=== PATIENT | female | born 1955 | race Caucasian/White ===

== ENCOUNTER 2019-03-27 19:19 | Inpatient (IN) | payer SELFPAY ==
[~2019-03-27] VITALS: Ht 162.6 cm; Wt 77.6 kg
[2019-03-27] MEDS ORDERED: SODIUM CHLORIDE 0.9% 1,000 ML IVB ONE (20:04)
[2019-03-27 20:34] LABS: Basophils # (auto) 0.1 uL; Basophils % (auto) 1.7 % (0.0-2.0); Eosinophils # (auto) 0.1 uL; Eosinophils % (auto) 1.8 % (0.0-7.0); Hematocrit 35.7 % (36.0-46.0); Hemoglobin 12.3 g/dL (12.2-16.2); Mean Corpuscular Hemoglobin 33.5 pg (28.0-32.0); Mean Corpuscular Hgb Conc. 34.4 g/dL (32.0-36.0); Mean Corpuscular Volume 97.4 fL (80.0-100.0); Monocytes # (auto) 0.6 uL; Monocytes % (auto) 7.8 % (0.0-12.0); Neutrophils # (auto) 4.5 uL; Neutrophils % (auto) 60.7 % (37.0-80.0); Platelet Count (auto) 402 10^3/uL (140-450); Red Blood Cells 3.67 10^6/uL (4.0-5.20); Red Cell Distribution Width 14.8 % (11.8-14.3); White Blood Cell 7.3 10^3/uL (4.4-10.8)
[2019-03-27 20:42] LABS: INR 1.01 (0.9-1.15)
[2019-03-27 20:57] LABS: Albumin 3.6 g/dL (3.4-5.0); Calcium 8.9 mg/dL (8.5-10.1); Potassium 3.5 mmol/L (3.5-5.1)
[2019-03-27 21:05] LABS: BUN/Creatinine Ratio 12.3; Bilirubin, Total 0.3 mg/dL (0.2-1.0); Total Protein 7.5 g/dL (6.4-8.2)
[2019-03-27] MEDS ORDERED: ACETAMINOPHEN 325 MG TAB PO ONE ×2 (22:15)
[2019-03-27] MEDS ORDERED: FOLIC ACID 1 MG, MULTIPLE VITAMIN 10 ML, MAGNESIUM SULF SDV 50% 8 MEQ, THIAMINE INJ 100... INJ SCH ×10 (22:15→22:30)
[2019-03-27] MEDS ORDERED: SODIUM CHLORIDE 0.9% 1,000 ML IV ONE ×2 (22:15)
[2019-03-27] MEDS: MAGNESIUM SULFATE 1GM/100ML 100 ML IV SCH ×2 (22:45→23:15)
[2019-03-27] MEDS ORDERED: DEXTROSE (50%) 50ML SYRG IV PRN (23:00)
[2019-03-27] MEDS ORDERED: chlordiazePOXIDE HCL 25 MG CAP PO PRN (23:00)
[2019-03-27] MEDS ORDERED: ACETAMINOPHEN 500 MG TAB PO PRN (23:00)
[2019-03-27] MEDS ORDERED: LORazepam 2MG/ML-1ML VIAL IV PRN (23:00)
[2019-03-27] MEDS ORDERED: ONDANSETRON HCL 4 MG/2 ML VIAL IV PRN (23:00)
[2019-03-27] MEDS ORDERED: TETANUS-DIPTH-ACEL PERTUSSIS 0.5ML SYRG IM ONE (23:00)
[2019-03-27] MEDS ORDERED: HYDROcodone-ACET 5/325MG TAB PO PRN (23:00)
--- NOTE | 2019-03-27 23:57 | NUR ---
SBAR received from Colette Welsh RN. Patient is going to be brought up to the floor shortly.
--- NOTE | 2019-03-28 00:06 | NUR ---
Telemetry admit from [facility] admitted to Telemetry unit after SBAR received. Patient oriented to LYNN SCHULZ RN primary RN, unit, room, bed, and unit policies regarding patient care and visiting hours. Patient now on continuous telemetry monitoring, tele box # 26 and telemetry reading on arrival to unit is NSR. Patient weighed by bedscale and encouraged to call if they need something. All questions and concerns addressed, patient verbalized understanding. Patient is A/O x4, complaints of pain to the generalized body, pain management options discussed with patient and patient stated tylenol will do nothing for her. Bilateral radial and dorsalis pedal pulses are 2+ and regular in rate and rhythm. A splint is on the right foot; abrasions noted to the JESÚS, back of the left upper thigh, right breast, and right knee. Call light is within reach, side rails up x2, bed is in lowest position, bed alarm is on. Will continue to monitor patient and make rounds as needed.
[2019-03-28] MEDS ORDERED: GABA100C9 PO (01:13)
[2019-03-28] MEDS ORDERED: FLUO1TAB3 PO (01:13)
[2019-03-28] MEDS ORDERED: METF-370 PO (01:13)
[2019-03-28] MEDS ORDERED: INS7030I SC (01:13)
[2019-03-28] MEDS ORDERED: HYDR25TA4 PO (01:13)
[2019-03-28] MEDS ORDERED: LISI40TA PO (01:13)
[2019-03-28 01:21] VITALS: BP 122/59
--- NOTE | 2019-03-28 03:53 | NUR ---
Urine sample collected and sent to lab via [employer] system.
[2019-03-28 04:26] LABS: Urine Bacteria NONE SEEN /hpf (None Seen); Urine Blood TRACE /uL (Negative); Urine Specific Gravity 1.009 (1.001-1.035); Urine WBC 6 /hpf (0 - 5)
[2019-03-28 04:43] LABS: Amphetamine Screen, Urine NEGATIVE (NEGATIVE); Barbiturate Scree,Urine NEGATIVE (NEGATIVE); Cannabinoid Screen, Urine NEGATIVE (NEGATIVE); Cocaine Screen, Urine NEGATIVE (NEGATIVE); Opiate Scree,Urine NEGATIVE (NEGATIVE); Phencyclidine Screen, Urine NEGATIVE (NEGATIVE)
--- NOTE | 2019-03-28 04:47 | NUR ---
MULTIVITAMINS IV INFUSION/BANANA BAG NOT AVAILABLE, CHARGE NURSE AND HOUSE SUP NOTIFIED. UNABLE TO MIX BANANA BAG, SOME OF THE COMPONENTS ARE ONLY AVAILABLE IN THE PHARMACY Addendum: 03/29/19 at 0450 by SELINA CRANE RN DISREGARD.
[2019-03-28 04:48] LABS: Benzodiazephine Screen, Urine NEGATIVE (NEGATIVE)
[2019-03-28 05:13] VITALS: BP 135/58
[2019-03-28 06:10] LABS: Basophils # (auto) 0.1 uL; Basophils % (auto) 1.1 % (0.0-2.0); Eosinophils # (auto) 0 uL; Eosinophils % (auto) 0.5 % (0.0-7.0); Hemoglobin 11.8 g/dL (12.2-16.2); Lymphocytes # (auto) 1.1 uL; Lymphocytes % (auto) 15.5 % (10.0-50.0); Mean Corpuscular Hemoglobin 32.5 pg (28.0-32.0); Mean Corpuscular Hgb Conc. 33.7 g/dL (32.0-36.0); Mean Corpuscular Volume 96.5 fL (80.0-100.0); Monocytes # (auto) 0.7 uL; Monocytes % (auto) 9.5 % (0.0-12.0); Neutrophils # (auto) 5.4 uL; Neutrophils % (auto) 73.4 % (37.0-80.0); Platelet Count (auto) 346 10^3/uL (140-450); Red Blood Cells 3.62 10^6/uL (4.0-5.20); Red Cell Distribution Width 14.5 % (11.8-14.3); White Blood Cell 7.4 10^3/uL (4.4-10.8)
[2019-03-28 06:28] LABS: BUN/Creatinine Ratio 13.1; Calcium 8.2 mg/dL (8.5-10.1); Potassium 3.3 mmol/L (3.5-5.1)
[2019-03-28] MEDS: ACCU-CHEK COMFORT CURVE STRIP VI SCH ×4 (06:35→22:08)
[2019-03-28] MEDS: InsuLIN REG 1unit/0.01ml Soln (100units/ml) SC SCH ×4 (06:35→22:08)
--- NOTE | 2019-03-28 07:52 | NUR ---
Opening Shift Note Assumed care of patient, awake and alert. No S/S of distress/SOB. Patient complained of pain to right knee and foot. Refused hot or cold compress, refused Tylenol. No other pain medications ordered at this time. Awaiting hospitalist rounding. Patient was instructed on POC and to call for assist PRN, will continue to monitor for changes Q1hr and PRN.
[2019-03-28 08:28] VITALS: BP 139/79
[2019-03-28] MEDS: PANTOPRAZOLE 40 MG TAB PO SCH (10:16)
[2019-03-28] MEDS: GABAPENTIN 300 MG CAP PO SCH ×2 (10:16→22:08)
[2019-03-28] MEDS: FLUoxetine HCL 20 MG CAP PO SCH (10:16)
[2019-03-28] MEDS: LISINOPRIL 20 MG TAB PO SCH (10:18)
[2019-03-28] MEDS ORDERED: chlordiazePOXIDE HCL 25 MG CAP PO PRN (12:00)
[2019-03-28] MEDS ORDERED: LORazepam 2MG/ML-1ML VIAL IV PRN (12:15)
[2019-03-28] MEDS: MORPHINE SULF INJ 2 MG/ML SYRINGE 1ML IV PRN ×3 (12:24→22:08)
[2019-03-28] MEDS ORDERED: POTASSIUM CHL 10 Meq TABLET PO ONE (12:30)
[2019-03-28 12:47] VITALS: BP 142/82
--- NOTE | 2019-03-28 13:25 | NUR ---
Ortho Consult Dr. Santillan at bedside.
[2019-03-28 16:48] VITALS: BP 147/82
--- NOTE | 2019-03-28 19:03 | NUR ---
Opening Shift Note Assumed care of patient, awake and alert x4. No S/S of distress/SOB or pain. Call light is within reach, side rails up x2, bed is in lowest position, SEIZURE PRECAUTIONS are at bedside. The right leg has a new dressing and marilee bandage on it per DR. Santillan, it is C/D/I. Pillows were placed under the right knee to elevate the leg to minimize swelling. Instructed on POC and to call for assist PRN. All questions and concerns answered, will continue to monitor for changes Q1hr and PRN.
--- NOTE | 2019-03-28 21:16 | NUR ---
Care endorsed to Toby PERES.
--- NOTE | 2019-03-28 21:20 | NUR ---
RECEIVED PATIENT LYING IN BED, AWAKE, ALERT, ORIENTED X4. NO S/S OF RESPIRATORY DISTRESS, DENIES SOB AND CHEST PAIN. ORIENTED ON PLAN OF CARE. BED IS LOCKED AND IN LOWEST LEVEL, SIDE RAILS UP X2, CALL LIGHT WITHIN REACH. WILL CONTINUE TO MONITOR
[2019-03-28] MEDS: FOLIC ACID 1 MG, MULTIPLE VITAMIN 10 ML, MAGNESIUM SULF SDV 50% 8 MEQ, THIAMINE INJ 100... INJ SCH ×5 (22:00)
[2019-03-28 22:23] VITALS: BP 153/79
--- NOTE | 2019-03-28 22:40 | NUR ---
MULTIVITAMINS IV INFUSION/BANANA BAG NOT AVAILABLE, CHARGE NURSE AND HOUSE SUP NOTIFIED. UNABLE TO MIX BANANA BAG, SOME OF THE COMPONENTS ARE ONLY AVAILABLE IN THE PHARMACY
[2019-03-29 05:05] VITALS: BP 153/80
[2019-03-29 05:24] VITALS: BP 153/80
[2019-03-29 06:20] LABS: Basophils # (auto) 0.1 uL; Basophils % (auto) 1.3 % (0.0-2.0); Eosinophils # (auto) 0.1 uL; Eosinophils % (auto) 1.4 % (0.0-7.0); Hemoglobin 11.9 g/dL (12.2-16.2); Lymphocytes # (auto) 1.4 uL; Lymphocytes % (auto) 23.1 % (10.0-50.0); Mean Corpuscular Hemoglobin 33.1 pg (28.0-32.0); Mean Corpuscular Hgb Conc. 34.1 g/dL (32.0-36.0); Monocytes # (auto) 0.7 uL; Monocytes % (auto) 12.1 % (0.0-12.0); Neutrophils # (auto) 3.8 uL; Neutrophils % (auto) 62.1 % (37.0-80.0); Nucleated Red Blood Cells % 0.1 %; Platelet Count (auto) 317 10^3/uL (140-450); Red Blood Cells 3.61 10^6/uL (4.0-5.20); Red Cell Distribution Width 14.6 % (11.8-14.3); White Blood Cell 6.1 10^3/uL (4.4-10.8)
[2019-03-29] MEDS: MORPHINE SULF INJ 2 MG/ML SYRINGE 1ML IV PRN ×4 (06:38→22:10)
[2019-03-29] MEDS: ACCU-CHEK COMFORT CURVE STRIP VI SCH ×4 (06:38→22:08)
[2019-03-29] MEDS: InsuLIN REG 1unit/0.01ml Soln (100units/ml) SC SCH ×4 (06:38→22:08)
[2019-03-29 06:47] LABS: BUN/Creatinine Ratio 14.9; Calcium 8.6 mg/dL (8.5-10.1); Potassium 3.3 mmol/L (3.5-5.1)
--- NOTE | 2019-03-29 06:50 | NUR ---
CALLED PHARMACY TO DELIVER THE BANANA BAG
--- NOTE | 2019-03-29 07:22 | NUR ---
Opening Shift Note Assumed care of patient, awake and alert. No S/S of distress/SOB. PT denies any pain at this time. Bed in lowest and locked position with side rails up x2 and call light within reach. Instructed on POC and to call for assist PRN, will continue to monitor for changes Q1hr and PRN.
--- NOTE | 2019-03-29 07:36 | NUR ---
CARE ENDORSED TO AM SHIFT RN
[2019-03-29 09:07] VITALS: BP 145/81
[2019-03-29] MEDS: PANTOPRAZOLE 40 MG TAB PO SCH (10:00)
[2019-03-29] MEDS: GABAPENTIN 300 MG CAP PO SCH ×2 (11:05→22:08)
[2019-03-29] MEDS: LISINOPRIL 20 MG TAB PO SCH (11:05)
[2019-03-29] MEDS: FLUoxetine HCL 20 MG CAP PO SCH (11:05)
[2019-03-29] MEDS: FOLIC ACID 1 MG, MULTIPLE VITAMIN 10 ML, MAGNESIUM SULF SDV 50% 8 MEQ, THIAMINE INJ 100... INJ SCH ×5 (11:07)
[2019-03-29] MEDS ORDERED: POTASSIUM CHL 20 Meq TABLET PO ONE (12:45)
[2019-03-29] MEDS ORDERED: ENOXAPARIN SOD 40 MG/0.4 ML SYRINGE SC ONE (12:45)
[2019-03-29 13:00] VITALS: BP 130/72
[2019-03-29] MEDS: MAGNESIUM SULFATE 1GM/100ML 100 ML IV SCH ×3 (13:33→16:48)
[2019-03-29 16:58] VITALS: BP 139/71
--- NOTE | 2019-03-29 19:00 | NUR ---
IV insertion IV access obtained, via clean sterile technique by inserting 20 gauge catheter at left hand after 1 attempt(s). IV secured properly. No trauma to site. Patient tolerated well.
--- NOTE | 2019-03-29 19:00 | NUR ---
IV removal left AC IV DC'd with clean sterile technique, catheter fully intact. Pressure dressing applied to site. Patient tolerated well.
[2019-03-29 22:07] VITALS: BP 149/76
[2019-03-29] MEDS: MAGNESIUM OXIDE 400 MG TAB PO SCH (22:08)
[2019-03-30 05:40] VITALS: BP 142/83
[2019-03-30 05:51] LABS: BUN/Creatinine Ratio 12.3; Calcium 8.5 mg/dL (8.5-10.1); Magnesium 1.8 mg/dL (1.6-2.6); Potassium 3.4 mmol/L (3.5-5.1)
[2019-03-30 05:54] LABS: Bilirubin, Total 1.3 mg/dL (0.2-1.0); Total Protein 6.9 g/dL (6.4-8.2)
[2019-03-30] MEDS: ACCU-CHEK COMFORT CURVE STRIP VI SCH ×2 (06:27→12:03)
[2019-03-30] MEDS: InsuLIN REG 1unit/0.01ml Soln (100units/ml) SC SCH ×2 (06:27→12:03)
[2019-03-30] MEDS: MORPHINE SULF INJ 2 MG/ML SYRINGE 1ML IV PRN ×2 (06:32→11:21)
--- NOTE | 2019-03-30 07:23 | NUR ---
CARE ENDORSED TO AM SHIFT RN
[2019-03-30 09:00] VITALS: BP 140/80
[2019-03-30] MEDS ORDERED: POTASSIUM CHL 20 Meq TABLET PO ONE (09:30)
[2019-03-30] MEDS ORDERED: ENOXAPARIN SOD 40 MG/0.4 ML SYRINGE SC SCH (10:00)
[2019-03-30] MEDS: GABAPENTIN 300 MG CAP PO SCH (10:09)
[2019-03-30] MEDS: PANTOPRAZOLE 40 MG TAB PO SCH (10:09)
[2019-03-30] MEDS: MAGNESIUM OXIDE 400 MG TAB PO SCH (10:09)
[2019-03-30] MEDS: FLUoxetine HCL 20 MG CAP PO SCH (10:09)
[2019-03-30] MEDS: MAGNESIUM SULFATE 1GM/100ML 100 ML IV SCH ×2 (10:09→11:20)
[2019-03-30] MEDS: LISINOPRIL 20 MG TAB PO SCH (10:10)
[2019-03-30] MEDS ORDERED: FOLIC ACID 1 MG, MULTIPLE VITAMIN 10 ML, MAGNESIUM SULF SDV 50% 8 MEQ, THIAMINE INJ 100... INJ SCH ×5 (11:00)
[2019-03-30 13:23] VITALS: BP 134/64
[2019-03-30] MEDS ORDERED: SUCCINYLCHOLINE CHLORIDE 20 MG/ML 10ML VIAL IV ONE (13:36)
[2019-03-30] MEDS ORDERED: ETOMIDATE (2MG/ML) 20ML VIAL IV ONE (13:36)
[2019-03-30] MEDS ORDERED: MIDAZOLAM DRIP 50 mg/50mL 50 ML IV ONE (13:36)
[2019-03-30] MEDS ORDERED: PROPOFOL 100 ML IV ONE (13:58)
[2019-03-30 14:01] VITALS: BP 134/64
--- NOTE | 2019-03-30 14:34 | NUR ---
assessment Patient is a 64 year old female who is alert and oriented. Prior to admission patient lived home with family and functioned independently. Patients PCP is Dr Dena Chung. Patient has no insurance. Patient has been assessed by Edis Church of [facility]. Patient is over Income 1,849 per month is her income. I have provided patient with resources for [facility], Dr. Gonzalez, and [facility] urgent care for follow up visits. I have provided patient with a prescription card from community assistance program. Patient has no post discharge needs at this time. Patient agreed to discharge plan home on discharge. Addendum: 03/30/19 at 1436 by Brissa BYERS Amended: Links added.
--- NOTE | 2019-03-30 14:50 | NUR ---
Discharge instructions given as ordered. Encourage to follow up with PMD as instructed. All questions and concerns addressed. Patient verbalized understanding. Medication reconciliation form completed and copy given to patient. NO Home medications held in Pharmacy. NO needed vaccines. IV removed with catheter intact, pressure dressing applied. Telemetry unit returned to [facility].
--- NOTE | 2019-03-30 14:58 | NUR ---
Patient taken to vehicle via wheelchair with all personal belongings, accompanied by staff and patient mother. No distress noted at time of departure.
== END 2019-03-30 14:48 | disposition home or self-care (01) | DRG 563 ==
LOC: EDBD 19:19 → ER 19:19 → TELE 19:20 → TELE-WESTW 03-28 00:09
PROVIDERS: ADMIT Nurse Practitioner Family; ATTEND Internal Medicine
DX: S82.51XA Displaced fracture of medial malleolus of right tibia, initial encounter for closed fracture (principal); S22.41XA Multiple fractures of ribs, right side, initial encounter for closed fracture; D63.8 Anemia in other chronic diseases classified elsewhere; E11.21 Type 2 diabetes mellitus with diabetic nephropathy; E11.22 Type 2 diabetes mellitus with diabetic chronic kidney disease; E78.5 Hyperlipidemia, unspecified; E83.42 Hypomagnesemia; E87.6 Hypokalemia; F10.229 Alcohol dependence with intoxication, unspecified; Y90.9 Presence of alcohol in blood, level not specified; Z81.8 Family history of other mental and behavioral disorders; Z80.3 Family history of malignant neoplasm of breast; Z80.8 Family history of malignant neoplasm of other organs or systems; Z81.1 Family history of alcohol abuse and dependence; E66.9 Obesity, unspecified; Z71.3 Dietary counseling and surveillance; I12.9 Hypertensive chronic kidney disease with stage 1 through stage 4 chronic kidney disease, or unspecified chronic kidney disease; N18.9 Chronic kidney disease, unspecified; V49.9XXA Car occupant (driver) (passenger) injured in unspecified traffic accident, initial encounter; Y93.89 Activity, other specified; Y92.488 Other paved roadways as the place of occurrence of the external cause; Y99.8 Other external cause status; Z79.899 Other long term (current) drug therapy; Z98.84 Bariatric surgery status; Z68.29 Body mass index [BMI] 29.0-29.9, adult; Z88.6 Allergy status to analgesic agent; Z71.41 Alcohol abuse counseling and surveillance of alcoholic
CPT/HCPCS: 36415; 70450; 71250; 72131; 73562; 73610; 76705; 80048; 80053; 80307; 80320; 81001; 82140; 82962; 83036; 83735; 85025; 85610; 90715; 94761; 96361; 96365; 96368; 97116; 97530; G0378; J0330; J1815; J2250; J2704

== ENCOUNTER 2022-04-06 15:29 | Emergency (ER) | payer MEDICAID, OTHER ==
[~2022-04-06] VITALS: Ht 160 cm; Wt 65.0 kg
[~2022-04-06 15:29] MED LIST: FLUO20TA34 PO; GABA100C9 PO; HYDR25TA4 PO; INS7030I SC; LISI40TA11 PO; METF-370 PO
[2022-04-06 18:17] LABS: Urine Bacteria NONE SEEN /hpf (None Seen); Urine Blood Negative /uL (Negative); Urine Hyaline Cast MOD /lpf (0 - 2); Urine Specific Gravity 1.024 (1.001-1.035); Urine WBC 15 /hpf (0 - 5)
[2022-04-06] MEDS ORDERED: SODIUM CHLORIDE 0.9% 500 ML IV ONE (18:30)
[2022-04-06 18:33] LABS: Basophils # (auto) 0.1 10 ^3/uL (0-0.2); Basophils % (auto) 0.8 % (0.0-2.0); Eosinophils # (auto) 0.1 10 ^3/uL (0-0.8); Eosinophils % (auto) 1.7 % (0.0-7.0); Hematocrit 28.5 % (36.0-46.0); Hemoglobin 9.3 g/dL (12.2-16.2); Lymphocytes # (auto) 1.3 10 ^3/uL (0.4-5.4); Lymphocytes % (auto) 19.4 % (10.0-50.0); Mean Corpuscular Hemoglobin 29.2 pg (28.0-32.0); Mean Corpuscular Hgb Conc. 32.6 g/dL (32.0-36.0); Mean Corpuscular Volume 89.5 fL (80.0-100.0); Monocytes # (auto) 0.5 10 ^3/uL (0-1.3); Monocytes % (auto) 8.3 % (0.0-12.0); Neutrophils # (auto) 4.6 10 ^3/uL (1.6-8.6); Neutrophils % (auto) 69.8 % (37.0-80.0); Red Blood Cells 3.18 10^6/uL (4.0-5.20); Red Cell Distribution Width 16.4 % (11.8-14.3); White Blood Cell 6.6 10^3/uL (4.4-10.8)
[2022-04-06 18:49] LABS: Albumin 3.6 g/dL (3.4-5.0); Calcium 8.4 mg/dL (8.5-10.1); Magnesium 1.8 mg/dL (1.6-2.6); Potassium 3.6 mmol/L (3.5-5.1)
[2022-04-06 18:52] LABS: BUN/Creatinine Ratio 12.8
[2022-04-06 18:55] LABS: Bilirubin, Total 0.4 mg/dL (0.2-1.0); Total Protein 7.4 g/dL (6.4-8.2)
[2022-04-06] MEDS ORDERED: AML5T PO (19:44)
[2022-04-06 20:15] VITALS: BP 125/50
== END 2022-04-06 20:28 | disposition home or self-care (01) ==
LOC: ER 15:29
DX: R42 Dizziness and giddiness (principal); I95.9 Hypotension, unspecified; N28.9 Disorder of kidney and ureter, unspecified; I10 Essential (primary) hypertension; E11.9 Type 2 diabetes mellitus without complications; E78.5 Hyperlipidemia, unspecified; Z90.49 Acquired absence of other specified parts of digestive tract; Z79.4 Long term (current) use of insulin; Z79.899 Other long term (current) drug therapy; Z88.5 Allergy status to narcotic agent
CPT/HCPCS: 36415; 71045; 80053; 81001; 83735; 83880; 84484; 85025; 93005; 99285; J7040

== ENCOUNTER 2022-08-03 12:52 | Emergency (ER) | payer OTHER ==
[~2022-08-03] VITALS: Ht 160 cm; Wt 69.0 kg
[~2022-08-03 12:52] MED LIST changes: +AML5T PO
[2022-08-03 14:40] VITALS: BP 141/78
[2022-08-03 15:14] LABS: Basophils # (auto) 0.1 10 ^3/uL (0-0.2); Basophils % (auto) 0.5 % (0.0-2.0); Eosinophils # (auto) 0 10 ^3/uL (0-0.8); Eosinophils % (auto) 0.5 % (0.0-7.0); Hematocrit 30.6 % (36.0-46.0); Lymphocytes # (auto) 1.6 10 ^3/uL (0.4-5.4); Lymphocytes % (auto) 16.1 % (10.0-50.0); Mean Corpuscular Hemoglobin 27.9 pg (28.0-32.0); Mean Corpuscular Hgb Conc. 32.6 g/dL (32.0-36.0); Mean Corpuscular Volume 85.7 fL (80.0-100.0); Monocytes # (auto) 0.9 10 ^3/uL (0-1.3); Monocytes % (auto) 9.3 % (0.0-12.0); Neutrophils # (auto) 7.2 10 ^3/uL (1.6-8.6); Neutrophils % (auto) 73.6 % (37.0-80.0); Nucleated Red Blood Cells % 0.1 %; Red Blood Cells 3.57 10^6/uL (4.0-5.20); Red Cell Distribution Width 15.9 % (11.8-14.3); White Blood Cell 9.8 10^3/uL (4.4-10.8)
[2022-08-03 15:29] LABS: BUN/Creatinine Ratio 14.7; Calcium 9.1 mg/dL (8.5-10.1); Potassium 3.5 mmol/L (3.5-5.1); Uric Acid 5.5 mg/dL (2.6-6.0)
[2022-08-03] MEDS ORDERED: PRED20TA2 PO (15:45)
[2022-08-03] MEDS ORDERED: TRAM-297 PO (15:45)
[2022-08-03] MEDS ORDERED: KETOROLAC TROMETH 60MG/2ML VIAL IM ONE (15:45)
[2022-08-03] MEDS ORDERED: methylPREDNISolone SOD SUCC 125 MG/2 ML VL IM ONE (16:00)
== END 2022-08-03 16:17 | disposition home or self-care (01) ==
LOC: ER 12:52
DX: M10.072 Idiopathic gout, left ankle and foot (principal); E11.9 Type 2 diabetes mellitus without complications; I10 Essential (primary) hypertension; Z79.899 Other long term (current) drug therapy; Z79.84 Long term (current) use of oral hypoglycemic drugs
CPT/HCPCS: 36415; 73630; 80048; 84550; 85025; 96372; 99284; J1885; J2930